=== PATIENT | male | born 2005 | race African-American/Black ===

== ENCOUNTER 2025-06-08 02:41 | Emergency (ER) | payer SELFPAY | END 2025-06-08 03:45 | LOC: EEVIPCON 02:41 → ERS 02:41 → EDBD 02:41 → ERS 03:45 | DX: S50.312A Abrasion of left elbow, initial encounter (principal); S50.311A Abrasion of right elbow, initial encounter; S60.512A Abrasion of left hand, initial encounter; S60.511A Abrasion of right hand, initial encounter; W18.30XA Fall on same level, unspecified, initial encounter; Y35.93XA Legal intervention, means unspecified, suspect injured, initial encounter | CPT/HCPCS: 99283 ==